=== PATIENT | female | born 1965 | race Two or more races ===

== ENCOUNTER → 2024-07-11 | Outpatient (CLI) | payer OTHER, SELFPAY ==
--- NOTE | 2024-07-11 11:03 | XR_ITS ---
Examination: Foot, left, 3 views Technique: AP, oblique, lateral views foot, 3 views Date and time of exam: July 11, 2024 1129 hrs. Indications: Foot pain beginning 10 days ago Findings: No acute fracture No dislocation No erosive or other significant arthritic change Impression: No fracture or dislocation No erosive or other significant arthritic change
== END | disposition home or self-care (01) ==
PROVIDERS: PCP Family Medicine; Referring Provider Physician Assistant; Visit Provider Physician Assistant
DX: M25.572 Pain in left ankle and joints of left foot (principal)
CPT/HCPCS: 73630

== ENCOUNTER → 2024-09-12 | Outpatient (CLI) | payer OTHER, SELFPAY ==
--- NOTE | 2024-09-12 12:12 | XR_ITS ---
Examination: Bilateral knees, standing AP single view Technique: Standing AP bilateral knees, standing AP single view Exam date and time: September 12, 2024 1224 hrs. Indications: Patient fell 2 months ago with injury to the right knee, right knee pain Findings: Mild to moderate narrowing medial joint space right knee Mild narrowing medial joint space left knee No fracture or dislocation Impression: Mild to moderate narrowing medial joint space right knee
--- NOTE | 2024-09-12 12:12 | XR_ITS ---
EXAMINATION: Ankle, left 3 views . Technique: Ankle AP, oblique, lateral 3 views Date and time of exam: September 12, 2024 1224 hrs. Indications: Left ankle pain beginning 4 weeks ago Findings: Moderate osteopenia 3 mm plantar bony calcaneal spur No acute fracture Impression: 3 mm plantar bony calcaneal spur
== END | disposition home or self-care (01) ==
PROVIDERS: PCP Physician Assistant; Referring Provider Physician Assistant; Visit Provider Physician Assistant
DX: M25.861 Other specified joint disorders, right knee (principal); S89.92XA Unspecified injury of left lower leg, initial encounter; W19.XXXA Unspecified fall, initial encounter; M77.32 Calcaneal spur, left foot
CPT/HCPCS: 73565; 73610

== ENCOUNTER → 2025-03-01 | Outpatient (CLI) | payer OTHER, SELFPAY ==
--- NOTE | 2025-03-01 13:55 | XR_ITS ---
Exam: MRI knee without contrast, right Date and time of exam: March 01, 2025 1419 hours INDICATIONS: Right knee pain 8 months Technique: Multiple axial, coronal, and sagittal sections on the knee have been obtained. T2-Weighted sagittal, fat-suppressed images, TR 3,500, TE 62, T2 weighted coronal fat-saturated images, TR 3,500, TE 62 Proton density sagittal sections, TR 1800, TE 31. T-1 weighted coronal images, TR 524, TE 13.0 Findings: Medial meniscus anterior horn intact. Medial meniscus, body partially replaced by isointense in signal. Posterior horn medial meniscus horizontal linear tear communicating inner margin. Lateral meniscus anterior horn is intact Lateral meniscus, body is intact Posterior horn lateral meniscus is intact Anterior cruciate ligament mild sprain Posterior cruciate ligament appears intact. Knee effusion is small. Quadriceps and patellar tendons appear intact. There is no evidence of tendinosis. Inflammatory change or fracture of Hoffa's fat pad is not seen. Medial patellar facet demonstrates severe thinning. Lateral patellar facet cartilage demonstrates severe thinning. Trochlear cartilage demonstrates severe thinning. Marrow signal adequate. Medial collateral ligament appears intact. Meniscocapsular separation body the medial meniscus Illiotibial band and fibular collateral ligament are intact. Biceps femoris tendons appear intact. Medial femoral condylar articular cartilage demonstrates severe thinning. Lateral femoral condylar articular cartilage demonstratesmoderate thinning. Tibial plateau cartilage demonstrates severe medial thinning. Impression: Tears of the body and posterior horn medial meniscus Meniscocapsular separation body the medial meniscus Mild sprain anterior cruciate ligament
== END | disposition home or self-care (01) ==
LOC: SMRI 13:24
PROVIDERS: PCP Family Medicine; Referring Provider Physician Assistant; Visit Provider Physician Assistant
DX: S83.241A Other tear of medial meniscus, current injury, right knee, initial encounter (principal); S83.194A Other dislocation of right knee, initial encounter; S83.511A Sprain of anterior cruciate ligament of right knee, initial encounter; X58.XXXA Exposure to other specified factors, initial encounter
CPT/HCPCS: 73721

== ENCOUNTER → 2025-04-24 | Outpatient (CLI) | payer OTHER, SELFPAY ==
[2025-04-24 09:31] LABS: Basophils # (Auto) 0.1 Thou/mm3 (0.0-0.2); Basophils % (Auto) 1 % (0-2.5); Eosinophils # (Auto) 0.2 Thou/mm3 (0.0-0.5); Eosinophils % (Auto) 3 % (0-10); Hematocrit 39.2 % (36.0-46.0); Hemoglobin 12.8 g/dL (12.0-16.0); Immature Granulocytes Auto 0.02 Thou/mm3 (0.00-0.00); Lymphocytes # (Auto) 2.5 Thou/mm3 (1.0-4.8); Lymphocytes % (Auto) 38 % (10-50); Mean Corpuscular HGB Conc 32.7 g/dl (31.0-37.0); Mean Corpuscular Hemoglobin 27.8 pg (25.0-35.0); Mean Corpuscular Volume 85 fL (80-100); Monocytes # (Auto) 0.4 Thou/mm3 (0.0-0.8); Monocytes % (Auto) 5 % (0-12); Neutrophils # (Auto) 3.5 Thou/mm3 (1.8-7.7); Neutrophils % (Auto) 52 % (37-80); Nucleated Red Blood Cell # 0.00 Thou/mm3 (0.00-0.00); Nucleated Red Blood Cell % 0 /100 WBC (0); Platelet Count 324 Thou/mm3 (140-440); RDW Standard Deviation 41.7 fL (36.4-46.3); Red Blood Count 4.60 Miln/mm3 (4.00-5.20); White Blood Count 6.7 Thou/mm3 (3.6-11.0)
[2025-04-24 09:57] LABS: Alanine Aminotransferase 22 U/L (10-49); Albumin, Serum 4.5 gm/dL (3.5-5.0); Albumin/Globulin Ratio 1.5 (1.2-2.2); Alkaline Phosphatase 69 U/L (46-116); Amylase 50 U/L (30-118); Anion Gap 8 (7-16); Aspartate Amino Transferase 24 U/L (0-34); BUN/Creatinine Ratio 11 Ratio (12-20); Bilirubin,Total 0.4 mg/dL (0.3-1.2); Blood Urea Nitrogen 9 mg/dL (9-23); Calcium 9.4 mg/dL (8.3-10.6); Calcium (Corrected) 9.4 mg/dL (8.5-10.1); Carbon Dioxide 26.1 mMol/L (20.0-31.0); Cardiac Risk Estimate 3.6 RATIO (3.7-5.6); Chloride 107 mMol/L (98-107); Cholesterol 257 mg/dL (132-200); Creatinine (Component) 0.8 mg/dL (0.6-1.3); Globulin 3.1 gm/dL (2.3-3.5); Glucose 104 mg/dL (74-106); HDL Cholesterol 71 mg/dL (40-60); LDL Cholesterol,Calculated 144 mg/dL (0-130); Lipase 45 U/L (12-53); Osmolality,Calculated 279 (275-295); Potassium 3.8 mMol/L (3.4-5.1); Sodium 141 mMol/L (136-145); Total Protein 7.6 gm/dL (5.7-8.2); Triglycerides 210 mg/dL (30-150); eGFR > 60 See Note
[2025-04-24 09:59] LABS: Vitamin D 25 Hydroxy Total 21.6 ng/mL (7.3-40.2)
[2025-04-24 10:01] LABS: Ferritin 36 ng/mL (7.3-270.7); Iron 72 mcg/dL (50-170)
[2025-04-24 10:02] LABS: Glucose Estimated Average 128 mg/dL (80-131); Hemoglobin A1C 6.1 % Hgb (4.8-6.0)
[2025-05-01 06:48] LABS: (tTG) Ab, IgA <1.0 U/mL; (tTG) Ab, IgG <1.0 U/mL; Endomysial Ab IgA NEGATIVE (NEGATIVE); Gliadin(Deamidated)Ab,IgA <1.0 U/mL; Gliadin(Deamidated)Ab,IgG <1.0 U/mL
== END | disposition home or self-care (01) ==
LOC: CDIM 08:46 → COPL 08:46
PROVIDERS: PCP Family Medicine; Referring Provider Physician Assistant; Visit Provider Physician Assistant
DX: R10.9 Unspecified abdominal pain (principal); E78.5 Hyperlipidemia, unspecified; E55.9 Vitamin D deficiency, unspecified
CPT/HCPCS: 36415; 80053; 80061; 82150; 82306; 82728; 83013; 83014; 83036; 83540; 83690; 85025; 86231; 86258; 86364

== ENCOUNTER 2025-06-18 03:07 | Inpatient (IN) | payer OTHER, MEDICAID, SELFPAY ==
[2025-06-18] VITALS (8 sets, daily range): BP systolic 107–164; BP diastolic 62–84; PULSE 58–95; RESP 14–19; TEMP 36.1–36.9; O2SAT 96–99; BMI 27.0
--- NOTE | 2025-06-18 03:32 | XR_ITS ---
Examination: CT abdomen and pelvis without contrast. Coronal 3-D reconstructions. Sagittal 2-D reconstructions. Date and time of exam: June 18, 2025, 0445 hours INDICATIONS: Abdominal pain beginning 3 days ago CTDI: vol (mGy): 7.17 DLP: (mGycm): 386 Technique: Axial images of the abdomen have been obtained, 3 mm slice thickness Intravenous contrast material has not been administered. Low dose protocols were performed. One or more of the following dose reduction techniques were used; automated exposure control, adjustment of the mA and/or KV according to patient size, use of iterative reconstruction technique. Findings: No focal liver or splenic lesions Gallstones No pancreatic or adrenal mass No renal or ureteral calculi Aorta normal size Normal appendix No bowel obstruction No pelvic mass Urinary bladder intact Osseous structures intact IMPRESSION: Cholelithiasis, recommend gallbladder sonography follow-up to exclude gallbladder wall thickening
--- NOTE | 2025-06-18 03:33 | PD.EDRME ---
Rapid Medical Screening Exam RME Arrival date/time: 06/18/25 03:07 This is a case of 60-year-old female with no medical history came into the emergency room due to abdominal pain nausea vomiting for 3 days worsening of the symptoms this patient decided to start consulted in the emergency ROOM Chief Complaint: Abdominal Pain Time Seen by Provider: 06/18/25 03:29 Vital signs: Vital Signs Temperature 97.5 F 06/18/25 03:17 Pulse Rate 74 06/18/25 03:17 Respiratory Rate 17 06/18/25 03:17 Blood Pressure 164/84 H 06/18/25 03:17 Pulse Oximetry (%) 98 06/18/25 03:17 Oxygen Delivery Method Room Air 06/18/25 03:17 Exam: Moderate tenderness in the epigastric area no guarding no rebound no rigidity Clinical Impression: Abdominal pain
--- NOTE | 2025-06-18 03:58 | EKG_ITS ---
[facility] Test Date: 2025-06-18 Pat Name: REX JIMENEZ Department: Room: - Gender: Female Adolescent Counselor: : 1965 Requested By: Taylor Duran Order Number: [id number] Reading MD: Taylor Duran Measurements Intervals [place] Rate: 69 P: 180 AL: 148 QRS: 146 QRSD: 81 T: 150 QT: 371 QTc: 399 Interpretive Statements ECTOPIC ATRIAL RHYTHM POSSIBLE RIGHT VENTRICULAR HYPERTROPHY [SOME/ALL OF: PROMINENT R IN V1, LATE TRANSITION, RAD, JOANNA, SSS] No previous ECG available for comparison /store/S0/[id number].pdf
[2025-06-18 04:01] LABS: Basophils # (Auto) 0.1 Thou/mm3 (0.0-0.2); Basophils % (Auto) 1 % (0-2.5); Eosinophils # (Auto) 0.1 Thou/mm3 (0.0-0.5); Eosinophils % (Auto) 1 % (0-10); Hematocrit 36.4 % (36.0-46.0); Hemoglobin 12.0 g/dL (12.0-16.0); Immature Granulocytes Auto 0.03 Thou/mm3 (0.00-0.00); Lymphocytes # (Auto) 1.8 Thou/mm3 (1.0-4.8); Lymphocytes % (Auto) 19 % (10-50); Mean Corpuscular HGB Conc 33.0 g/dl (31.0-37.0); Mean Corpuscular Hemoglobin 28.0 pg (25.0-35.0); Mean Corpuscular Volume 85 fL (80-100); Monocytes # (Auto) 0.5 Thou/mm3 (0.0-0.8); Monocytes % (Auto) 5 % (0-12); Neutrophils # (Auto) 7.2 Thou/mm3 (1.8-7.7); Neutrophils % (Auto) 75 % (37-80); Nucleated Red Blood Cell # 0.00 Thou/mm3 (0.00-0.00); Nucleated Red Blood Cell % 0 /100 WBC (0); Platelet Count 338 Thou/mm3 (140-440); RDW Standard Deviation 40.7 fL (36.4-46.3); Red Blood Count 4.28 Miln/mm3 (4.00-5.20); White Blood Count 9.7 Thou/mm3 (3.6-11.0)
--- NOTE | 2025-06-18 04:03 | PD.EDABDPN ---
ED Abdominal Pain RME/HPI General Chief Complaint: Abdominal Pain Stated complaint: UPPER ABD PAIN Time seen by provider: 06/18/25 03:29 Arrival date/time: 06/18/25 03:07 Limitations: no limitations RME / HPI RME / HPI narrative: 06/18/25 03:07 This is a case of 60-year-old female with no medical history came into the emergency room due to abdominal pain nausea vomiting for 3 days worsening of the symptoms this patient decided to start consulted in the emergency ROOM Dr. Galindo's Main ED Evaluation: 60yo female with no significant past medical history presents to the ED for a chief complaint of epigastric pain x 1999. Patient texted her daughter at 2100 stating she was having gas and bloating that was not improving despite using a heating pad, taking Gas X and herbal remedies. Patient also took omeprazole, but her abdominal pain continued, so she came in for evaluation. Patient reports associated nausea. Denies any vomiting, fever, chills, or any other associated symptoms. NKA. notes her is scheduled to have his gallbladder removed by Dr. Vaughn tomorrow and is concerned about needing to be admitted. Related Data Home Medications ?Medication ?Instructions ?Recorded ?Confirmed omeprazole 20 mg capsule,delayed 20 mg PO DAILY 06/18/25 06/18/25 release Allergies Allergy/AdvReac Type Severity Reaction Status Date / Time No Known Allergies Allergy Verified 06/18/25 03:12 Review of Systems Review of Systems Systems Reviewed: All systems reviewed, normal except as documented ED Exam General Limitations: Present no limitations General appearance: Present alert and in no apparent distress Head Head exam: Present atraumatic Eye Eye exam: Present normal appearance, PERRL and EOMI ENT ENT exam: Present normal exam, normal oropharynx and mucous membranes moist Neck Neck exam: Present normal inspection, full ROM and trachea midline Chest Chest inspection: Present normal inspection and symmetric chest wall rise Respiratory Respiratory exam: Present normal lung sounds bilaterally Cardiovascular Cardiovascular exam: Present regular rate, normal rhythm and normal heart sounds Abdominal Exam Abdominal exam: Present soft; Absent Gonzalez's sign Abdominal tenderness: Present epigastrium (mild) Extremities Exam Extremities exam: Present normal inspection and full ROM Back Exam Back exam: Present normal inspection and full ROM Neurological Exam Neurological exam: Present alert, oriented X3 and CN II-XII intact Psychiatric Psychiatric exam: Present normal affect and normal mood Skin Skin exam: Present warm, dry, intact and normal color Course Quality Measures none Orders Category Date Time Status Admit to Inpatient Status Routine Admission 06/18/25 09:35 Active Patient Condition Routine Admission 06/18/25 09:35 Ordered EKG (ED ONLY) *Do not use* NOW Care 06/18/25 03:58 Completed NPO NOW Care 06/18/25 09:36 Active Notify provider NEEDED Care 06/18/25 09:35 Active Strict Intake and Output Routine Care 06/18/25 09:36 Ordered Consult to General Surgery Stat Cons 06/18/25 09:23 Ordered Diet NPO (NOW) Diet 06/18/25 09:[address] abdomen pelvis wo con Stat Exams 06/18/25 03:32 Completed EKG (ED Only) Stat Exams 06/18/25 03:58 Draft US gall bladder Stat Exams 06/18/25 05:33 Completed CBC AM DRAW Lab 06/19/25 05:00 Ordered CBC AM DRAW Lab 06/20/25 05:00 Ordered CBC AM DRAW Lab 06/21/25 05:00 Ordered CBC Stat Lab 06/18/25 03:48 Completed Comprehensive Metabolic Panel AM DRAW Lab 06/19/25 05:00 Ordered Comprehensive Metabolic Panel AM DRAW Lab 06/20/25 05:00 Ordered Comprehensive Metabolic Panel AM DRAW Lab 06/21/25 05:00 Ordered Comprehensive Metabolic Panel Stat Lab 06/18/25 03:48 Completed INR [Prothrombin Time with INR] Stat Lab 06/18/25 02:48 Completed Lipase Stat Lab 06/18/25 03:48 Completed Magnesium AM DRAW Lab 06/19/25 05:00 Ordered PTT [Partial Thromboplastin Time] Stat Lab 06/18/25 02:48 Completed Phosphorous AM DRAW Lab 06/19/25 05:00 Ordered Thyroid Stimulating Hormone AM DRAW Lab 06/19/25 05:00 Ordered Troponin I Stat Lab 06/18/25 03:48 Completed Urinalysis Stat Lab 06/18/25 05:18 Completed Acetaminophen Tab [Tylenol Tab] Med 06/18/25 09:35 Active 650 mg PO Q6H PRN HYDROcodone*/APAP 5/325 [[place] 5/325] Med 06/18/25 09:35 Active 1 tab PO Q6HR PRN HYDROcodone*/APAP 5/325 [[place] 5/325] Med 06/18/25 03:34 Discontinued 1 tab PO X1 ONE Heparin Inj Med 06/18/25 21:00 Active 5,000 unit SC BID Morphine* Inj Med 06/18/25 09:35 Active 1 mg IVP Q4H PRN Morphine* Inj Med 06/18/25 05:35 Discontinued 4 mg IVP X1 ONE Ondansetron Inj [Zofran Inj] Med 06/18/25 09:35 Active 4 mg IVP Q6H PRN Ondansetron Inj [Zofran Inj] Med 06/18/25 05:51 Discontinued 4 mg IVP X1 ONE Ondansetron Odt [Zofran Odt] Med 06/18/25 03:34 Discontinued 4 mg PO X1 ONE Pantoprazole [Protonix] Med 06/18/25 21:00 Discontinued 40 mg PO BID Ringers Lactated 1000 ml [Lactated Ringers] 1,000 ml Med 06/18/25 09:45 Active IV 120 mls/hr Code Status Routine Oth 06/18/25 09:29 Ordered Vital Signs Vital signs: Vital Signs Temperature 97.5 F 06/18/25 03:17 Pulse Rate 74 06/18/25 03:17 Respiratory Rate 17 06/18/25 03:17 Blood Pressure 164/84 H 06/18/25 03:17 Pulse Oximetry (%) 98 06/18/25 03:17 Oxygen Delivery Method Room Air 06/18/25 03:17 Abdominal Pain MDM MDM Narrative MDM Narrative:: Scribe Attestation: 06/18/25 Herlinda Rodgers am scribing for and in the presence of Dr. Galindo. 60-year-old female presents to the emergency department with diffuse abdominal pain x 1 to 2 days that is nonspecific feels like it is gas Patient otherwise is not febrile. White count is 9.7. On physical exam patient has some nonspecific abdominal pain. Otherwise her AST is 392, ALT is 174, alk phos is 133. Lipase is 630. A CT scan was ordered by the nurse practitioner and/or midlevel upfront with CT without contrast that showed possible gallstone and pancreatitis and [place] cholecystic fluid. On reexamination the patient does not have a Gonzalez sign. Patient is pending ultrasound. Morphine and Zofran and IV fluids are given. Signed out to Dr. Cope at 0 600 pending final disposition and ultrasound findings. Patient data External records reviewed:: [facility] previous records (Per chart review, patient has no previous ED visits or admissions to this facility.) Clinical information provided by:: patient Social determinants that could affect healthcare access:: none Patient has the following chronic illnesses:: none How is presenting disease/condition affected by chronic disease/condition?: no chronic disease Evaluation data The following diagnostics were reviewed and interpreted by me:: lab results, radiology exam(s) and EKG tracing(s) Lab and/or radiology exams considered but not ordered:: none Interpretation Summary: CBC normal, PT/INR/PTT normal, Glucose 181, AST 392, ALT 174, Alk Phos 133, Lipase 630. EKG done at 0405, sinus rhythm, rate of 69, normal intervals, normal axis, no ST elevations or depressions, QTc: 390, [place] interval: 148, according to my interpretation. Telerad Preliminary Report Draft Patient: REX JIMENEZ Record#: [id number] Birthdate: 1965 Age/Sex: 60 / F Location: [facility] Attending Dr: Ordering Physician: Date of Service: Procedure(s): Accession Number(s): cc: ~ CT scan of the abdomen and pelvis without intravenous contrast (axial sections with sagittal and coronal reformats) June 18, 2025 0444 hours Clinical History: ABD PAIN Comparison: No prior study is available for comparison. Findings: The lung bases are clear. There are multiple calcified and non calcified calculi in the gallbladder, with borderline wall thickening and pericholecystic fat stranding. The liver, pancreas, spleen, kidneys and adrenals are unremarkable on this noncontrast study. No evidence of bowel obstruction. A moderate amount of fecal material is present in the colon. A small fat-containing umbilical hernia is present. The appendix is within normal limits (coronal images 51-65). There is no mesenteric or retroperitoneal adenopathy. The urinary bladder is unremarkable. The uterus and adnexa are unremarkable. There is no free fluid or free air. Degenerative changes are identified in the spine. Impression: Findings are of concern for acute cholecystitis. Recommend further evaluation with sonography, if clinically indicated Report Electronically Signed By: Ruslan Mcgee 06/18/2025 5:20:20 AM Medications / Prescriptions Medications or Prescriptions considered but not ordered:: none Medication administrations:: Medication Administration History Acetaminophen (Acetaminophen 325 Mg Tablet) 650 mg PO Q6H PRN PRN Reason: PAIN (1-3) OR FEVER > 100.4 Stop: 07/18/25 09:34 Hydrocodone Bitart/Acetaminophen (Hydrocodone/Apap 5/325 Tablet) 1 tab PO Q6HR PRN PRN Reason: PAIN SCALE 4-6 (Moderate Stop: 06/23/25 09:34 Heparin Sodium (Porcine) (Heparin Sod Inj 5000 Unit/Ml Vial) 5,000 unit SC BID [facility] Stop: 07/02/25 20:59 Last Admin: 06/18/25 20:27 Dose: 5,000 unit Documented By: KLESIE Co-signed By: EARL Lactated Ringer's (Lactated Ringers) 1,000 mls @ 120 mls/hr IV .Q8H20M [facility] Stop: 07/18/25 09:44 Last Admin: 06/18/25 18:22 Dose: 120 mls/hr Documented By: Infusion: 06/18/25 18:15 Dose: Infused Documented By: Admin: 06/18/25 09:55 Dose: 120 mls/hr Documented By: UGO Morphine Sulfate (Morphine Sulf Inj 4 Mg/Ml Vial) 1 mg IVP Q4H PRN PRN Reason: PAIN SCALE 7-10 (Severe Stop: 06/23/25 09:34 Ondansetron HCl (Ondansetron Inj 2 Mg/Ml Inj 2 Ml) 4 mg IVP Q6H PRN; Protocol PRN Reason: NAUSEA OR VOMITING Stop: 07/18/25 09:34 Pantoprazole Sodium (Pantoprazole Inj 40 Mg Vial) 40 mg IVP BID [facility] Stop: 07/18/25 20:59 Last Admin: 06/18/25 20:27 Dose: 40 mg Documented By: KELSIE Discontinued Medications Hydrocodone Bitart/Acetaminophen (Hydrocodone/Apap 5/325 Tablet) 1 tab PO X1 ONE Stop: 06/18/25 03:35 Last Admin: 06/18/25 04:16 Dose: 1 tab Documented By: CHRIS Morphine Sulfate (Morphine Sulf Inj 4 Mg/Ml Vial) 4 mg IVP X1 ONE Stop: 06/18/25 05:36 Last Admin: 06/18/25 06:02 Dose: 4 mg Documented By: JOSE Ondansetron HCl (Ondansetron Odt 4 Mg Tabrap) 4 mg PO X1 ONE; Protocol Stop: 06/18/25 03:35 Last Admin: 06/18/25 04:15 Dose: 4 mg Documented By: CHRIS Ondansetron HCl (Ondansetron Inj 2 Mg/Ml Inj 2 Ml) 4 mg IVP X1 ONE; Protocol Stop: 06/18/25 05:52 Last Admin: 06/18/25 06:01 Dose: 4 mg Documented By: JOSE Pantoprazole Sodium (Pantoprazole 40 Mg Tablet) 40 mg PO BID BILLY Stop: 07/18/25 20:59 see above Consultations Consultation(s) initiated? (list below): No Diagnosis Differential diagnosis abdominal pain: diverticulitis, gastroenteritis and other (GERD, NSTEMI) Most likely diagnosis given after review of the tests above:: final dx pending at signout Admission Indicated Admission indicated?: not indicated Admission Request Was there a request for admission?: No Disposition Plan Disposition Plan: other (specify) (Signed out to the next oncoming provider at 0600 pending gallbladder US.) Discharge Plan Plan Patient Disposition: Admit Acute Care w/in Hospital Problem List Clinical Impression: Acute gallstone pancreatitis
[2025-06-18 04:15] LABS: INR 1.0 (0.9-1.3); Partial Thromboplastin Time 25.2 Seconds (22.0-36.0); Prothrombin Time 10.2 Seconds (9.0-12.2)
[2025-06-18] MEDS: ONDANSETRON ODT 4 MG TABRAP PO (04:15)
[2025-06-18] MEDS: HYDROcodone/APAP 5/325 TABLET 1 TAB PO (04:16)
[2025-06-18 04:21] LABS: Alanine Aminotransferase 174 U/L (10-49); Albumin, Serum 4.8 gm/dL (3.5-5.0); Albumin/Globulin Ratio 1.5 (1.2-2.2); Alkaline Phosphatase 133 U/L (46-116); Anion Gap 11 (7-16); Aspartate Amino Transferase 392 U/L (0-34); BUN/Creatinine Ratio 16 Ratio (12-20); Bilirubin,Total 1.0 mg/dL (0.3-1.2); Blood Urea Nitrogen 11 mg/dL (9-23); Calcium 9.6 mg/dL (8.3-10.6); Calcium (Corrected) 9.6 mg/dL (8.5-10.1); Carbon Dioxide 25.2 mMol/L (20.0-31.0); Chloride 104 mMol/L (98-107); Creatinine (Component) 0.7 mg/dL (0.6-1.3); Estimated Creatinine Clearance 74.6 mL/min (>60); Globulin 3.1 gm/dL (2.3-3.5); Glucose 181 mg/dL (74-106); Lipase 630 U/L (12-53); Osmolality,Calculated 283 (275-295); Potassium 4.0 mMol/L (3.4-5.1); Sodium 140 mMol/L (136-145); Total Protein 7.9 gm/dL (5.7-8.2); Troponin I < 0.002 ng/mL (0.0-0.045); eGFR > 60 See Note
[2025-06-18 05:21] LABS: Collection Type, Urine Clean Catch
--- NOTE | 2025-06-18 05:22 | PRELIM_ITS ---
CT scan of the abdomen and pelvis without intravenous contrast (axial sections with sagittal and coronal reformats) June 18, 2025 0444 hours Clinical History: ABD PAIN Comparison: No prior study is available for comparison. Findings: The lung bases are clear. There are multiple calcified and non calcified calculi in the gallbladder, with borderline wall thickening and pericholecystic fat stranding. The liver, pancreas, spleen, kidneys and adrenals are unremarkable on this noncontrast study. No evidence of bowel obstruction. A moderate amount of fecal material is present in the colon. A small fat-containing umbilical hernia is present. The appendix is within normal limits (coronal images 51-65). There is no mesenteric or retroperitoneal adenopathy. The urinary bladder is unremarkable. The uterus and adnexa are unremarkable. There is no free fluid or free air. Degenerative changes are identified in the spine. Impression: Findings are of concern for acute cholecystitis. Recommend further evaluation with sonography, if clinically indicated Report Electronically Signed By: Ruslan Mcgee 06/18/2025 5:20:20 AM [EST]
[2025-06-18 05:27] LABS: Amorphous Crystals,Urine Present (Absent); Bacteria,Urine Rare; Bilirubin,Urine Negative (Negative); Blood,Urine Negative (Negative); Clarity,Urine Clear (Clear/Hazy); Color,Urine Yellow (Lt Yel-Yel); Glucose, Urine Negative (Negative); Ketones,Urine Negative (Negative); Leukocyte Esterase,Urine Positive (Negative); Nitrite,Urine Negative (Negative); PH,Urine 6.5 (5.0-7.0); Protein,Urine Negative (Neg - Trace); RBC,Urine 7 /hpf (0-3); Specific Gravity,Urine 1.022 (1.001-1.035); Squamous Epithelial Cell,Urine < 1 /hpf (0-5); Urobilinogen,Urine 2.0 mg/dL (0.0-1.0); WBC,Urine 5 /hpf (0-5)
--- NOTE | 2025-06-18 05:33 | XR_ITS ---
Examination: Abdomen sonogram, Limited Date and time of exam: June 18, 2025, 0551 hours INDICATIONS: Upper abdominal pain after 9:00 p.m. yesterday Technique: Real-time guerrero scale transabdominal sonographic images of the upper abdomen obtained. Findings: Multiple gallstones Gallbladder wall 0.31 cm no edema Common bile duct 0.4 cm Pancreatic head 2.6 cm Liver 12.7 cm smooth contour Normal hepatopetal portal venous flow Patent IVC IMPRESSION: Cholelithiasis, negative for cholecystitis
[2025-06-18] MEDS: ONDANSETRON INJ 2 MG/ML INJ 2 ML 4 MG IVP (06:01)
[2025-06-18] MEDS: MORPHINE SULF INJ 4 MG/ML VIAL IVP (06:02)
--- NOTE | 2025-06-18 06:43 | EDNOTE_ITS ---
Emergency Room Addendum Addendum Narrative: 0600: Care assumed from Dr. Perez, the previous shift emergency physician. Past medical, surgical, social and family history reviewed. Vitals and home medications reviewed. I will assume the care of the patient at this time, pending ultrasound and final disposition. Please refer to the emergency department record for history and examination from initial visit.?The following addendum documentation note is intended to reflect any pending information, findings, or radiology results not included in the patient?s initial chart. I reviewed labs and gallbladder ultrasound. Labs are remarkable for AST 392, ALT 174, alkaline phosphate 133, lipase 630, bilirubin is within normal limits at 1.0. The gallbladder ultrasound is remarkable for cholelithiasis no cholecystitis, and the common bile duct measures within normal limits at 0.4cm. 0844a: Patient has received [place] and Morphine through ED course. States at this time the pain has improved. States in the last week she has had episodes lasting 2-3 hours daily, described as a bloating sensation with pain localized to the epigastric region. Initially believed to be trapped gas and would improved after taking omeprazole and massaging her abdomen.However, states her pain began at 9PM last night and did not improved after several hours, prompting ED visit. We reviewed all the results, analysis, and treatment plans. Patient is amenable to admission. 0850a: I spoke with hospitalist team C for admission. Discussed patients PMHx, HPI, ED course, exam findings, labs, and radiology results. 0923a: I spoke with general surgeon Dr. Vaughn. Discussed patients PMHx, HPI, ED course, exam findings, labs, and radiology results. He agrees to consult.
[2025-06-18] MEDS: RINGERS LACTATED 1000 ML 1,000 ML 120 ML IV ×2 (09:55→18:22)
--- NOTE | 2025-06-18 11:29 | PD.SURCONS ---
HPI Consult details Consult date: 06/18/25 Reason for consultation narrative: Gallstone pancreatitis History of present illness: 60-year-old female without significant past medical history presented to the emergency department with worsening abdominal pain. Her symptoms started about a week ago with epigastric and right upper quadrant abdominal pain after eating. Over the past 2 days her pain has become persistent and progressively worse. Her pain is radiating to her back and associated with nausea. She denies vomiting, fever, chills, jaundice or discoloration of urine or stool. She denies having similar symptoms in the past. She was noted to have elevation of liver enzymes and lipase. CT scan and abdominal ultrasound revealed gallstones. Review of Systems Constitutional Constitutional: Denies chills and Denies fever(s) Cardiovascular Cardiovascular: Denies chest pain Respiratory Respiratory: Denies cough Gastrointestinal Gastrointestinal: Reports abdominal pain, Reports nausea and Denies vomiting Musculoskeletal Musculoskeletal: Reports back pain Hematologic/Lymphatic Hematologic/Lymphatic: Denies easy bleeding and Denies easy bruising Past Medical History Surgical History OTHER SURGICAL HX: No surgeries in the past Social History SMOKING STATUS: Never smoker SUBSTANCE USE: does not use ALCOHOL: Never Meds Home Medications and Allergies Home Medications ?Medication ?Instructions ?Recorded ?Confirmed ?Type omeprazole 20 mg capsule,delayed 20 mg PO DAILY 06/18/25 06/18/25 History release Allergies Allergy/AdvReac Type Severity Reaction Status Date / Time No Known Allergies Allergy Verified 06/18/25 03:12 Exam Vital Signs Temp Pulse Resp BP Pulse Ox O2 Del Method 97.9 F 58 L 14 107/62 96 Room Air 06/18/25 10:36 06/18/25 10:36 06/18/25 10:36 06/18/25 10:36 06/18/25 10:36 06/18/25 10:36 Constitutional Constitutional: no acute distress Routine HEENT Exam Eye: Present PERRL (Anicteric sclera) Routine Abdominal Exam Comments: Abdomen is soft and nondistended. She has epigastric and right upper quadrant tenderness to palpation with guarding, no rebound tenderness or peritonitis at this time Results Results: Laboratory Laboratory results: results reviewed Results: Imaging CT scan - abdomen: report reviewed and image reviewed CT scan - pelvis: report reviewed and image reviewed US - abdomen: report reviewed and image reviewed Assessment & Plan Problem List (1) Biliary acute pancreatitis without necrosis or infection: Status: Acute Plan Keep n.p.o. with IV fluids. Will plan for laparoscopic possible open cholecystectomy with cholangiogram when pancreatitis improves. Risks, benefits and alternatives to procedure discussed with the patient and her family. All their questions answered, they agreed and consented to proceed with the operation.
[2025-06-18 11:54] LABS: Cardiac Risk Estimate 3.2 RATIO (3.7-5.6); Cholesterol 240 mg/dL (132-200); HDL Cholesterol 74 mg/dL (40-60); LDL Cholesterol,Calculated 137 mg/dL (0-130); Triglycerides 147 mg/dL (30-150)
--- NOTE | 2025-06-18 13:08 | ESHP_ITS ---
<Statement entered by Kostas Ashby MD - 06/18/25 13:23> 60-year-old female with history of hyperlipidemia but no other past medical history who presents with 1 week of abdominal pain. Patient states that she has been experiencing abdominal pain that worsens with food but no associated nausea or vomiting, located in epigastrium and at times in the right upper quadrant. However, last night she experienced acute worsening of her abdominal pain that radiated to her back and prompted her to come to the ED. Upon arrival, blood pressure slightly elevated in 160s over 80s but otherwise was unremarkable and patient was afebrile. Labs showed no leukocytosis but elevated LFTs and alk phos as well as lipase of 630. Lipid panel showed triglycerides of 147. CT A/P showed cholelithiasis but no signs of gallbladder wall thickening and gallbladder ultrasound showed the same with normal common bile duct. Given typical abdominal pain and elevated lipase, meets criteria for pancreatitis and will be admitted for management of the same with aggressive IVF resuscitation and pain management. General surgery consulted given that likely etiology is out of gallstones as she does not smoke, drink, triglycerides within normal limits and no recent bug/insect bites. Plan for laparoscopic, possible open, cholecystectomy with cholangiogram when pancreatitis improves. ----- Note reviewed and agree with care plan as documented. Please refer to the note below for further details. Plan discussed with attending physician Dr. Jose Alejandro Ashby MD PGY-2 Internal Medicine Documentation for date of: 06/18/25 HPI History of Present Illness Chief complaint: Upper abdominal pain History of present illness: Patient is a 60-year-old female with no significant past medical history that presented to the ED on 06/18/2025 with chief complaint of abdominal pain. The patient presents with intermittent abdominal pain that has been ongoing for the past 1 week.However epigastric pain worsen last night around 9pm after dinner. The pain is described as a sharp, tight sensation located in the epigastric region and radiates to the bilateral lower back. The discomfort does not worsen after eating. The patient rates the pain as 9 out of 10 at its worst. She also reports associated constipation, with regular daily bowel movements consisting of small, hard, pellet-like stools. However, she denies nausea, vomiting, chills, or fever. The patient tried self-management measures, including massage and an [id number] gastric tablet, but these did not provide relief. She also took omeprazole, suspecting the pain might be related to acid reflux, but only experienced minimal relief with the PPI. The patient denies any history of steroid use, previous trauma, or use of other [id number] medications. ED Course: -Initial vitals were blood pressure 164/84, pulse 74, respiratory 17, temp 97.5, O2 sat 98% on room air -Labs significant for AST 392, ALT 174, alkaline phosphatase 133. Lipid panel significant for cholesterol 240, LDL 137, HDL cholesterol 74, lipase 630 - Imaging included abdominal/pelvis CT that showed cholelithiasis. Gallbladder ultrasound showed multiple gallstones with with common bile duct 0.5 cm. Negative for cholecystitis. EKG showed sinus rhythm -In the ED, patient was given Zofran 4 mg x 2, hydrocodone/APAP 1 tab, morphine IV 4 mg -Patient was admitted for acute gallstone pancreatitis evaluation and management. Review of Systems Review of systems otherwise negative except what is mentioned above. Past Medical History: Hyperlipidemia Family History: Mother-open heart surgery, stent placement, hypertension. Sister-cholecystectomy, diabetes Surgical History: None Social History: Denies history of smoking, denies current alcohol use, denies recreational drug use Current Medications: None Allergies: No known drug allergies Exam Vital Signs Temp Pulse Resp BP Pulse Ox O2 Del Method 97.9 F 58 L 14 107/62 96 Room Air 06/18/25 10:36 06/18/25 10:36 06/18/25 10:36 06/18/25 10:36 06/18/25 10:36 06/18/25 10:36 Narrative Exam General: Alert, no acute distress.Conversational and non-toxic appearing. Skin: Warm, dry, intact. No rash or ecchymoses. Head: Normocephalic, atraumatic. Eye: Normal conjunctiva, PERRL. Throat: Oral mucosa moist. No obvious lesions in oropharynx. Cardiovascular: Regular rate and rhythm, no murmur, +S1/S2. Respiratory: Lungs are clear to auscultation, respirations unlabored, no crackles, no wheezing. Gastrointestinal: Soft, nontender, non-distended. No guarding or rebound tenderness. Extremities: No edema, no cyanosis, no clubbing. Neuro: Alert and oriented x3.No focal deficits observed. Conversant, moving all extremities. No overt cerebellar signs/incoordination. Psychiatric: Cooperative, appropriate affect Results: Labs 06/18/25 03:48 06/18/25 03:48 Labs: Short CBC 06/18/25 Range/Units 03:48 WBC 9.7 (3.6-11.0) Thou/mm3 Hgb 12.0 (12.0-16.0) g/dL Hct 36.4 (36.0-46.0) % Plt Count 338 (140-440) Thou/mm3 BMP 06/18/25 03:48 Sodium 140 Potassium 4.0 Chloride 104 Carbon Dioxide 25.2 BUN 11 Creatinine 0.7 Glucose 181 H Calcium 9.6 Cardiac Enzymes 06/18/25 Range/Units 03:48 Troponin I < 0.002 (0.0-0.045) ng/mL Liver Function 06/18/25 Range/Units 03:48 Total Bilirubin 1.0 (0.3-1.2) mg/dL AST 392 H (0-34) U/L ALT 174 H (10-49) U/L Alkaline Phosphatase 133 H (46-116) U/L Albumin 4.8 (3.5-5.0) gm/dL Urine 06/18/25 Range/Units 05:18 Urine Color Yellow (Lt Yel-Yel) Urine Clarity Clear (Clear/Hazy) Urine pH 6.5 (5.0-7.0) Ur Specific [place] 1.022 (1.001-1.035) Urine Protein Negative (Neg - Trace) Urine Glucose (UA) Negative (Negative) Quality Measures Quality Measures VTE prophylaxis and none Medications Home Medications and Allergies Home Medications ?Medication ?Instructions ?Recorded ?Confirmed ?Type omeprazole 20 mg capsule,delayed 20 mg PO DAILY 06/18/25 History release Allergies Allergy/AdvReac Type Severity Reaction Status Date / Time No Known Allergies Allergy Verified 06/18/25 03:12 Visit Medications Acetaminophen (Acetaminophen 325 Mg Tablet) 650 mg PO Q6H PRN PRN Reason: PAIN (1-3) OR FEVER > 100.4 Stop: 07/18/25 09:34 Hydrocodone Bitart/Acetaminophen (Hydrocodone/Apap 5/325 Tablet) 1 tab PO Q6HR PRN PRN Reason: PAIN SCALE 4-6 (Moderate Stop: 06/23/25 09:34 Heparin Sodium (Porcine) (Heparin Sod Inj 5000 Unit/Ml Vial) 5,000 unit SC BID REPLACED BY [facility] Stop: 07/02/25 20:59 Lactated Ringer's (Lactated Ringers) 1,000 mls @ 120 mls/hr IV .Q8H20M BILLY Stop: 07/18/25 09:44 Last Admin: 06/18/25 09:55 Dose: 120 mls/hr Morphine Sulfate (Morphine Sulf Inj 4 Mg/Ml Vial) 1 mg IVP Q4H PRN PRN Reason: PAIN SCALE 7-10 (Severe Stop: 06/23/25 09:34 Ondansetron HCl (Ondansetron Inj 2 Mg/Ml Inj 2 Ml) 4 mg IVP Q6H PRN; Protocol PRN Reason: NAUSEA OR VOMITING Stop: 07/18/25 09:34 Pantoprazole Sodium (Pantoprazole 40 Mg Tablet) 40 mg PO BID BILLY Stop: 07/18/25 20:59 Discontinued Medications Hydrocodone Bitart/Acetaminophen (Hydrocodone/Apap 5/325 Tablet) 1 tab PO X1 ONE Stop: 06/18/25 03:35 Last Admin: 06/18/25 04:16 Dose: 1 tab Morphine Sulfate (Morphine Sulf Inj 4 Mg/Ml Vial) 4 mg IVP X1 ONE Stop: 06/18/25 05:36 Last Admin: 06/18/25 06:02 Dose: 4 mg Ondansetron HCl (Ondansetron Odt 4 Mg Tabrap) 4 mg PO X1 ONE; Protocol Stop: 06/18/25 03:35 Last Admin: 06/18/25 04:15 Dose: 4 mg Ondansetron HCl (Ondansetron Inj 2 Mg/Ml Inj 2 Ml) 4 mg IVP X1 ONE; Protocol Stop: 06/18/25 05:52 Last Admin: 06/18/25 06:01 Dose: 4 mg Assessment & Plan Plan Patient is a 60-year-old female with no significant past medical history that presented to the ED on 06/18/2025 with chief complaint of worsening epigastric abdominal pain associated with constipatio. Gallbladder ultrasound found to have multiple gallstones, abdominal CT pelvis shows cholelithiasis. Patient admitted for acute pancreatitis evaluation and management. Intractable epigastric pain Acute gallstones pancreatitis Symptomatic Cholelithiasis Reported progressively worsening epigastric abdominal pain that radiates to the back. No nausea, no vomiting, no fever. Pt meets pancreatitis criteria with significant epigastric abdominal pain and elevated pancreatic enzyme lipase 630. T. yasir normal 06/18/25: abdominal/pelvis CT that showed cholelithiasis. 06/18/25: Gallbladder ultrasound showed multiple gallstones with with common bile duct 0.5 cm. Negative for cholecystitis. Plan - Pain control with hydrocodone/APAP 1 tab p.o. and morphine 1 mg IVP q4h as needed - Started IV hydration with LR at 120 mls/hour - Zofran 4 mg every 6 as needed for nausea - Protonix 40 mg p.o. twice daily - Continue to monitor daily labs - Surgery Dr. Vaughn consulted- Keep n.p.o. with IV fluids. Will plan for laparoscopic possible open cholecystectomy with cholangiogram when pancreatitis improves Transaminitis Likely transient to gallstone pancreatitis Plan - Continue to monitor liver enzymes - Continue management per above Hyperlipidemia Patient does mention history of high cholesterol however takes no medication. Lipid panel significant for cholesterol 240, LDH cholesterol 137, HDL cholesterol 74. Plan - Will starts statin regimen upon discharge Hospital management: Lines: peripheral IV Diet: N.p.o. GI prophylaxis: Protonix 40 mg DVT prophylaxis: Heparin SubQ Disposition: MedSurg for acute gastroenteritis, pending surgery recc CODE STATUS: Full code Patient seen and assessed under supervision of attending physician Dr. Blount and discuss with senior resident Dr. Ryan Ashby PGY-2 Kristal Rincon MD PGY-1, Internal Medicine Please note: this document was transcribed using voice recognition technology; minor inaccuracies may be present. Attending Provider Attestation/Addendum I have seen and examined the patient. I was physically present for the gilbert portions of the services provided including history, physical exam, diagnosis, treatment plans and orders. I agree with assessment and plan of care as documented by residents. Patient is a 60 years old female with history of hyperlipidemia who presented to the ED with complaint of abdominal pain. Patient has been having abdominal pain for 1 week, usually would come and go but the one started yesterday evening persisted which prompted the visit to the ED. Denies any nausea vomiting, constipation or diarrhea. In the ED, blood pressure was 164/84, rest of the vitals were within normal limits. Lab results show elevated AST ALT, ALP and lipase of 630. Abdomen/pelvis CT was obtained, showed cholelithiasis without cholecystitis. Gallbladder ultrasound also showed similar finding. We will admit the patient for management of gallstone pancreatitis in setting of cholelithiasis. We will start her on IV hydration, antiemetic, analgesics. General surgery consulted, patient is planned for cholecystectomy with cholangiogram after her pancreatitis improves. We will keep her n.p.o. for now. Lipid panel obtained, triglycerides within normal limits. Even though this this note was carefully revised there may still be minor errors in induction coordination engineer due to voice recognition software. Clint Blount MD
[2025-06-18] MEDS: HEPARIN SOD INJ 5000 UNIT/ML VIAL SC (20:27)
[2025-06-19] VITALS (11 sets, daily range): BP systolic 132–166; BP diastolic 65–89; PULSE 68–85; RESP 14–19; TEMP 36.4–37.2; O2SAT 94–100
[2025-06-19] MEDS: RINGERS LACTATED 1000 ML 1,000 ML 120 ML IV ×3 (02:44→17:30)
[2025-06-19 06:24] LABS: Basophils # (Auto) 0.1 Thou/mm3 (0.0-0.2); Basophils % (Auto) 1 % (0-2.5); Eosinophils # (Auto) 0.2 Thou/mm3 (0.0-0.5); Eosinophils % (Auto) 3 % (0-10); Hematocrit 35.1 % (36.0-46.0); Hemoglobin 11.6 g/dL (12.0-16.0); Immature Granulocytes Auto 0.01 Thou/mm3 (0.00-0.00); Lymphocytes # (Auto) 2.8 Thou/mm3 (1.0-4.8); Lymphocytes % (Auto) 42 % (10-50); Mean Corpuscular HGB Conc 33.0 g/dl (31.0-37.0); Mean Corpuscular Hemoglobin 28.1 pg (25.0-35.0); Mean Corpuscular Volume 85 fL (80-100); Monocytes # (Auto) 0.4 Thou/mm3 (0.0-0.8); Monocytes % (Auto) 5 % (0-12); Neutrophils # (Auto) 3.2 Thou/mm3 (1.8-7.7); Neutrophils % (Auto) 49 % (37-80); Nucleated Red Blood Cell # 0.00 Thou/mm3 (0.00-0.00); Nucleated Red Blood Cell % 0 /100 WBC (0); Platelet Count 303 Thou/mm3 (140-440); RDW Standard Deviation 40.7 fL (36.4-46.3); Red Blood Count 4.13 Miln/mm3 (4.00-5.20); White Blood Count 6.6 Thou/mm3 (3.6-11.0)
[2025-06-19 07:49] LABS: Alanine Aminotransferase 172 U/L (10-49); Albumin, Serum 4.0 gm/dL (3.5-5.0); Alkaline Phosphatase 122 U/L (46-116); Anion Gap 11 (7-16); Aspartate Amino Transferase 113 U/L (0-34); BUN/Creatinine Ratio 11 Ratio (12-20); Bilirubin,Total 0.8 mg/dL (0.3-1.2); Blood Urea Nitrogen 9 mg/dL (9-23); Calcium 9.2 mg/dL (8.3-10.6); Calcium (Corrected) 9.2 mg/dL (8.5-10.1); Carbon Dioxide 27.3 mMol/L (20.0-31.0); Chloride 106 mMol/L (98-107); Creatinine (Component) 0.8 mg/dL (0.6-1.3); Estimated Creatinine Clearance 65.3 mL/min (>60); Glucose 114 mg/dL (74-106); Lipase 106 U/L (12-53); Magnesium 1.8 mg/dL (1.6-2.6); Osmolality,Calculated 286 (275-295); Phosphorous 4.2 mg/dL (2.4-5.1); Potassium 4.0 mMol/L (3.4-5.1); Sodium 144 mMol/L (136-145); Thyroid Stimulating Hormone 1.07 uIU/mL (0.55-4.78); eGFR > 60 See Note
--- NOTE | 2025-06-19 10:40 | PC.SS ---
Prachi Barriga is a 60-year-old female admitted to Med Surg for Pancreatitis. SS conducted bedside contact with the patient to complete initial assessment and to discuss discharge planning. Role and reason explained. Patient confirmed demographic information. Patient identifies dtr Woody Larios [phone] as her surrogate decision maker. Pt states she is able to complete all ADL?s independently. No need for any source of DME. Pts PCP is Dr. Forte. Pharmacy of choice [facility]. Discharge options discussed and the pt wishes to return home.? Family will provide transportation upon DC. No further intervention required at this time, social work nurse would be available to address any further concerns. DC Plan: Home Contact: Daniela Mckay Address: Confirmed on face sheet PCP: Reanna
--- NOTE | 2025-06-19 10:42 | ESPR_ITS ---
<Statement entered by Kostas Ashby MD - 06/19/25 16:58> No acute overnight events. Seen and examined at bedside patient resting comfortably in bed. States that pain has improved since presenting to the hospital and was able to sleep throughout the night. He has had no fevers, chills, sweats. CBC shows no leukocytosis and hemoglobin stable. CHEM panel showing improving LFTs and alk phos and T. bili has remained within normal limits. Lipase downtrended. Per operative report cholangiogram x-ray was obtained that showed a dilated CBD with questionable small distal CBD stone as there was a filling defect into the duodenum. Touch base with general surgery and will follow-up on morning LFTs make decision whether or not patient will require transfer. ----- Note reviewed and agree with care plan as documented. Please refer to the note below for further details. Plan discussed with attending physician Dr. Geovani Ashby MD PGY-2 Internal Medicine Documentation for date of: 06/19/25 Subjective Subjective Interval history: No acute events overnight, per daughter at bedside patient slept soundly throughout the night. Patient seen and examined at bedside. She have no active complaint. She is alert as she was only asking about when she can resume eating after the procedure done today. Per patient Dr. Vaughn told her about double laparoscopic cholecystectomy later today. Labs were reviewed. Notable for improved transaminitis with AST from 392 to 113, ALT 174 to172. Lipase improved from 630 to 106. Exam Vital Signs Temp Pulse Resp BP Pulse Ox O2 Del Method 97.6 F 75 16 154/79 H 96 Room Air 06/19/25 08:00 06/19/25 08:00 06/19/25 08:00 06/19/25 08:00 06/19/25 08:00 06/19/25 08:00 Narrative Exam General: Alert, no acute distress.Conversational and non-toxic appearing. Skin: Warm, dry, intact. No rash or ecchymoses. Head: Normocephalic, atraumatic. Eye: Normal conjunctiva, PERRL. Throat: Oral mucosa moist. No obvious lesions in oropharynx. Cardiovascular: Regular rate and rhythm, no murmur, +S1/S2. Respiratory: Lungs are clear to auscultation, respirations unlabored, no crackles, no wheezing. Gastrointestinal: Soft, nontender, non-distended. No guarding or rebound tenderness. Extremities: No edema, no cyanosis, no clubbing. Neuro: Alert and oriented x3.No focal deficits observed. Conversant, moving all extremities. No overt cerebellar signs/incoordination. Psychiatric: Cooperative, appropriate affect Objective Labs 06/20/25 05:32 06/20/25 05:32 Labs: Laboratory Results - last 24 hr 06/18/25 06/19/25 03:48 05:35 WBC 6.6 RBC 4.13 Hgb 11.6 L Hct 35.1 L MCV 85 MCH 28.1 MCHC 33.0 RDW Std Deviation 40.7 Plt Count 303 D Neut % (Auto) 49 Lymph % (Auto) 42 [place] % (Auto) 5 Eos % (Auto) 3 Baso % (Auto) 1 Neut # (Auto) 3.2 Lymph # (Auto) 2.8 [place] # (Auto) 0.4 Eos # (Auto) 0.2 Baso # (Auto) 0.1 Immature Gran # (Auto) 0.01 H Absolute Nucleated RBC 0.00 Immature Gran % 0 Nucleated RBC % 0 Sodium 144 Potassium 4.0 Chloride 106 Carbon Dioxide 27.3 Anion Gap 11 BUN 9 Creatinine 0.8 Estim Creat Clear Calc 65.3 eGFR > 60 BUN/Creatinine Ratio 11 L Glucose 114 H D Calculated Osmolality 286 Calcium 9.2 Corrected Calcium 9.2 Phosphorus 4.2 Magnesium 1.8 Total Bilirubin 0.8 AST 113 H ALT 172 H Alkaline Phosphatase 122 H Albumin 4.0 D Triglycerides 147 Cholesterol 240 H LDL Cholesterol, Calc 137 H HDL Cholesterol 74 H Cholesterol/HDL Ratio 3.2 L Lipase 106 H D TSH 1.07 Quality Measures Quality Measures VTE prophylaxis and none Assessment & Plan Assessment Current Active Medications: Generic Name Dose Route Start Last Admin Trade Name Freq PRN Reason Stop Dose Admin Acetaminophen 650 mg 06/18/25 09:35 Acetaminophen 325 Mg Tablet PO 07/18/25 09:34 Q6H PRN PAIN (1-3) OR FEVER > 100.4 Hydrocodone Bitart/Acetaminophen 1 tab 06/18/25 09:35 Hydrocodone/Apap 5/325 Tablet PO 06/23/25 09:34 Q6HR PRN PAIN SCALE 4-6 (Moderate Heparin Sodium (Porcine) 5,000 unit 06/18/25 21:00 06/19/25 09:35 Heparin Sod Inj 5000 Unit/Ml Vial SC 07/02/25 20:59 Not Given BID BILLY Lactated Ringer's 1,000 mls @ 120 mls/hr 06/18/25 09:45 06/19/25 02:44 Lactated Ringers IV 07/18/25 09:44 120 mls/hr .Q8H20M BILLY Administration Morphine Sulfate 1 mg 06/18/25 09:35 Morphine Sulf Inj 4 Mg/Ml Vial IVP 06/23/25 09:34 Q4H PRN PAIN SCALE 7-10 (Severe Ondansetron HCl 4 mg 06/18/25 09:35 Ondansetron Inj 2 Mg/Ml Inj 2 Ml IVP 07/18/25 09:34 Q6H PRN NAUSEA OR VOMITING Protocol Pantoprazole Sodium 40 mg 06/18/25 21:00 06/19/25 09:35 Pantoprazole Inj 40 Mg Vial IVP 07/18/25 20:59 40 mg BID BILLY Administration Plan Patient is a 60-year-old female with no significant past medical history that presented to the ED on 06/18/2025 with chief complaint of worsening epigastric abdominal pain associated with constipatio. Gallbladder ultrasound found to have multiple gallstones, abdominal CT pelvis shows cholelithiasis. Patient admitted for acute pancreatitis evaluation and management. Intractable epigastric pain Acute gallstones pancreatitis Symptomatic Cholelithiasis Reported progressively worsening epigastric abdominal pain that radiates to the back. No nausea, no vomiting, no fever. Pt meets pancreatitis criteria with significant epigastric abdominal pain and elevated pancreatic enzyme lipase 630->106 T. yasir normal 06/18/25: abdominal/pelvis CT that showed cholelithiasis. 06/18/25: Gallbladder ultrasound showed multiple gallstones with with common bile duct 0.5 cm. Negative for cholecystitis. Plan - Pain control with hydrocodone/APAP 1 tab p.o. and morphine 1 mg IVP q4h as needed - Started IV hydration with LR at 120 mls/hour - Zofran 4 mg every 6 as needed for nausea - Protonix 40 mg p.o. twice daily - Continue to monitor daily labs - Surgery Dr. Vaughn consulted- Keep n.p.o. with IV fluids. Will plan for laparoscopic possible open cholecystectomy with cholangiogram when pancreatitis today Transaminitis-improving Likely transient to gallstone pancreatitis AST 392 -> 113 ALT 174 ->172 Plan - Continue to monitor liver enzymes - Continue management per above Hyperlipidemia Patient does mention history of high cholesterol however takes no medication. Lipid panel significant for cholesterol 240, LDH cholesterol 137, HDL cholesterol 74. Plan - Will start statin regimen upon discharge Hospital management: Lines: peripheral IV Diet: N.p.o. GI prophylaxis: Protonix 40 mg DVT prophylaxis: Heparin SubQ Disposition: MedSurg for acute gastroenteritis, pending surgery recc CODE STATUS: Full code Patient seen and assessed under supervision of attending physician Dr. Olivo and discuss with senior resident Dr. Ryan Ashby PGY-2 Kristal Rincon MD PGY-1, Internal Medicine Please note: this document was transcribed using voice recognition technology; minor inaccuracies may be present. Attending Provider Attestation/Addendum Ida, Zuly Olivo, , attest that I was physically present for the gilbert portions of the service and evaluated the patient with the resident and I reviewed and discussed the case with the resident and agree with the resident's findings and plans of care as documented above Patient seen and evaluated this AM. She reports feeling well and denies any pain at this time. She is scheduled for lap janie this afternoon. She denies any nausea and vomiting, fevers or chills. No acute events overnight. Will f/u with operative report. Anticipate DC within next 24-48h.
[2025-06-19 13:07] LABS: Albumin/Globulin Ratio 1.3 (1.2-2.2); Globulin 3.0 gm/dL (2.3-3.5); Total Protein 7.0 gm/dL (5.7-8.2)
--- NOTE | 2025-06-19 14:00 | XR_ITS ---
EXAMINATION: Operative cholangiogram TECHNIQUE: AP portable supine abdomen single view Date and time: June 19, 2025, 1529 hours INDICATIONS: Status post laparoscopic cholecystectomy FINDINGS: Intra and extrahepatic biliary tract dilatation, common hepatic duct 21 mm, common bile duct 18 mm Meniscus defect, 3 mm in the distal common bile duct IMPRESSION: Findings most consistent with 3 mm impacted stone in the distal common bile duct
--- NOTE | 2025-06-19 16:05 | PD.SUROPNT ---
Date of Procedure 06/19/25 Pre Op Diagnosis Gallstone pancreatitis Post Op Diagnosis Cholelithiasis with cholecystitis Procedure Laparoscopic cholecystectomy with intraoperative cholangiogram Findings Distended gallbladder with multiple gallstones and chronic cholecystitis. Cholangiogram revealed dilated CBD with questionable small distal CBD stone Procedure Description Patient was brought into the operating room in supine position. After administration of general endotracheal anesthesia abdomen was prepped and draped in standard surgical manner. A Veress needle was inserted through the umbilicus and pneumoperitoneum was obtained up to 15 mmHg. The Veress needle was then removed, a 5 mm infraumbilical incision was made and the 5mm trocar was inserted. Laparoscopic camera was placed. Under direct visualization a laparoscopic camera a 10 mm trocar was placed in subxiphoid and two 5 mm trocars placed in right upper quadrant. The gallbladder was identified and was noted to be moderately distended with multiple gallstones and chronic cholecystitis. It was retracted cephalad and laterally. Dissection started near the infundibulum of gallbladder where cystic duct and gallbladder junction clearly identified. The cystic duct was circumferentially dissected off the peritoneum and surrounding inflammatory tissue. The critical view of safety was clearly demonstrated. An Endo Clip placed near the cystic duct and gallbladder junction and a small ductotomy was performed. Cholangiogram catheter was placed through the ductotomy site and contrast was injected. Cholangiogram x-ray was obtained that revealed dilated CBD with questionable small distal CBD stone, no filling of contrast into the duodenum. The cholangiogram catheter was removed and the cystic duct was divided between 2 endoclips proximally and one distally. The cystic artery was similarly divided. The gallbladder was then from the liver bed using electrocautery. The gallbladder was then placed inside an Endo Catch and removed from the abdomen utilizing subxiphoid trocar site. The area was copiously and thoroughly washed and irrigated, all the fluid was suctioned and the suction fluid returned clear. Hemostasis achieved using electrocautery. Endoclips noted be in place and intact without any bleeding or any leakage. Hemostasis was adequate and satisfactory. The subxiphoid trocar sites fascial defect was closed with 0 Vicryl using Endo Closure device. Instruments and trocars removed, pneumoperitoneum was evacuated and the incisions closed with 4-0 Monocryl in subcuticular fashion. Instrument needle and sponge counts were all reported to be correct X2. Patient tolerated the procedure well, was extubated, breathing spontaneously and without difficulty and was transferred to postanesthesia care in stable condition. Anesthesia GETA and local Pathology / specimen Other (Gallbladder and contents) Estimated Blood Loss 10 Condition Stable Disposition PACU Surgeon Mario Vaughn MD Surgical Staff Operation Date: 06/19/25 16:15 Case Staff Anesthesiologist: Gildardo Shaw RN First Assistant: Gayatri Peña
--- NOTE | 2025-06-19 16:28 | SUR.PHASEI ---
1612: Pt received in [facility] via [facility]. Report from Julianna ALEXANDER and Dr. Callahan. Pt obtunded. Resp even, unlabored. VS stable. Surgical sites x4 to abdomen secured with demabond. No swelling, discoloration to areas.
[2025-06-19] MEDS: HYDROmorphone INJ 2 MG/ML VIAL 0.4 MG IVP (16:36)
--- NOTE | 2025-06-19 16:39 | SUR.PHASEI ---
1636: Pt awake with c/o pain to abdomen. VS stable. Resp even, unlabored. Pain medication given per order.
--- NOTE | 2025-06-19 17:06 | SUR.PHASEI ---
1648: Pt resting. States she still has little pain but pain level coming down. Resp even, unlabored. VS stable. Surgical sites remain dry, clean, intact. Report to Betsy ALEXANDER 3rd floor. Pt transferred to [id number] in stable condition.
[2025-06-19] MEDS: CEFOXITIN 2 GM in SODIUM CHLORIDE 0.9% (Popper) 50 ML IV ×2 (17:31→23:13)
[2025-06-19] MEDS: MORPHINE SULF INJ 4 MG/ML VIAL 1 MG IVP (17:31)
[2025-06-19] MEDS: DOCUSATE SOD 100 MG CAPSULE PO (20:14)
[2025-06-19] MEDS: HYDROcodone/APAP 5/325 TABLET 1 TAB PO (20:14)
[2025-06-19] MEDS: HEPARIN SOD INJ 5000 UNIT/ML VIAL SC (20:15)
[2025-06-20] VITALS: BP 145/71; PULSE 73; RESP 17; TEMP 37.1; O2SAT 97
[2025-06-20] MEDS: HYDROcodone/APAP 5/325 TABLET 1 TAB PO ×2 (03:18→12:18)
[2025-06-20] MEDS: RINGERS LACTATED 1000 ML 1,000 ML 120 ML IV (03:18)
[2025-06-20 04:00] VITALS: BP 114/55; PULSE 67; RESP 16; TEMP 36.1; O2SAT 98
--- NOTE | 2025-06-20 04:03 | PC.NURSE ---
[facility] on 06/20/25 from 02:00am to 03:48am.
[2025-06-20] MEDS: CEFOXITIN 2 GM in SODIUM CHLORIDE 0.9% (Popper) 50 ML IV ×2 (06:01→12:14)
[2025-06-20 06:32] LABS: Basophils # (Auto) 0.0 Thou/mm3 (0.0-0.2); Basophils % (Auto) 0 % (0-2.5); Eosinophils # (Auto) 0.0 Thou/mm3 (0.0-0.5); Eosinophils % (Auto) 0 % (0-10); Hematocrit 32.0 % (36.0-46.0); Hemoglobin 10.7 g/dL (12.0-16.0); Immature Granulocytes Auto 0.02 Thou/mm3 (0.00-0.00); Lymphocytes # (Auto) 1.8 Thou/mm3 (1.0-4.8); Lymphocytes % (Auto) 23 % (10-50); Mean Corpuscular HGB Conc 33.4 g/dl (31.0-37.0); Mean Corpuscular Hemoglobin 28.5 pg (25.0-35.0); Mean Corpuscular Volume 85 fL (80-100); Monocytes # (Auto) 0.3 Thou/mm3 (0.0-0.8); Monocytes % (Auto) 4 % (0-12); Neutrophils # (Auto) 5.5 Thou/mm3 (1.8-7.7); Neutrophils % (Auto) 72 % (37-80); Nucleated Red Blood Cell # 0.00 Thou/mm3 (0.00-0.00); Nucleated Red Blood Cell % 0 /100 WBC (0); Platelet Count 295 Thou/mm3 (140-440); RDW Standard Deviation 40.9 fL (36.4-46.3); Red Blood Count 3.76 Miln/mm3 (4.00-5.20); White Blood Count 7.6 Thou/mm3 (3.6-11.0)
[2025-06-20 07:03] LABS: Alanine Aminotransferase 181 U/L (10-49); Albumin, Serum 4.0 gm/dL (3.5-5.0); Albumin/Globulin Ratio 1.4 (1.2-2.2); Alkaline Phosphatase 134 U/L (46-116); Anion Gap 12 (7-16); Aspartate Amino Transferase 110 U/L (0-34); BUN/Creatinine Ratio 11 Ratio (12-20); Bilirubin,Total 0.6 mg/dL (0.3-1.2); Blood Urea Nitrogen 8 mg/dL (9-23); Calcium 9.1 mg/dL (8.3-10.6); Calcium (Corrected) 9.1 mg/dL (8.5-10.1); Carbon Dioxide 25.4 mMol/L (20.0-31.0); Chloride 107 mMol/L (98-107); Creatinine (Component) 0.7 mg/dL (0.6-1.3); Estimated Creatinine Clearance 74.7 mL/min (>60); Globulin 2.8 gm/dL (2.3-3.5); Glucose 132 mg/dL (74-106); Osmolality,Calculated 287 (275-295); Potassium 4.1 mMol/L (3.4-5.1); Sodium 144 mMol/L (136-145); Total Protein 6.8 gm/dL (5.7-8.2); eGFR > 60 See Note
[2025-06-20 08:00] VITALS: BP 148/70; PULSE 75; RESP 18; TEMP 36.2; O2SAT 95
[2025-06-20] MEDS: HEPARIN SOD INJ 5000 UNIT/ML VIAL SC (08:29)
[2025-06-20] MEDS: DOCUSATE SOD 100 MG CAPSULE PO (08:29)
[2025-06-20] MEDS: MORPHINE SULF INJ 4 MG/ML VIAL 1 MG IVP (08:35)
--- NOTE | 2025-06-20 10:24 | PD.RESPRO ---
Documentation for date of: 06/20/25 Exam Vital Signs Temp Pulse Resp BP Pulse Ox O2 Del Method O2 Flow Rate 97.1 F 75 18 148/70 H 95 Room Air 5 06/20/25 08:00 06/20/25 08:00 06/20/25 08:00 06/20/25 08:00 06/20/25 08:00 06/20/25 04:00 06/19/25 16:30 Objective Labs 06/20/25 05:32 06/20/25 05:32 Labs: Laboratory Results - last 24 hr 06/19/25 06/20/25 05:35 05:32 WBC 7.6 RBC 3.76 L Hgb 10.7 L Hct 32.0 L MCV 85 MCH 28.5 MCHC 33.4 RDW Std Deviation 40.9 Plt Count 295 Neut % (Auto) 72 Lymph % (Auto) 23 Davidson % (Auto) 4 Eos % (Auto) 0 Baso % (Auto) 0 Neut # (Auto) 5.5 Lymph # (Auto) 1.8 Davidson # (Auto) 0.3 Eos # (Auto) 0.0 Baso # (Auto) 0.0 Immature Gran # (Auto) 0.02 H Absolute Nucleated RBC 0.00 Immature Gran % 0 Nucleated RBC % 0 Sodium 144 Potassium 4.1 Chloride 107 Carbon Dioxide 25.4 Anion Gap 12 BUN 8 L Creatinine 0.7 Estim Creat Clear Calc 74.7 eGFR > 60 BUN/Creatinine Ratio 11 L Glucose 132 H Calculated Osmolality 287 Calcium 9.1 Corrected Calcium 9.1 Total Bilirubin 0.6 AST 110 H ALT 181 H Alkaline Phosphatase 134 H Total Protein 7.0 6.8 Albumin 4.0 Globulin 3.0 2.8 Albumin/Globulin Ratio 1.3 1.4 Quality Measures Quality Measures VTE prophylaxis and none Assessment & Plan Assessment Current Active Medications: Generic Name Dose Route Start Last Admin Trade Name Freq PRN Reason Stop Dose Admin Acetaminophen 650 mg 06/18/25 09:35 Acetaminophen 325 Mg Tablet PO 07/18/25 09:34 Q6H PRN PAIN (1-3) OR FEVER > 100.4 Hydrocodone Bitart/Acetaminophen 1 tab 06/18/25 09:35 06/20/25 03:18 Hydrocodone/Apap 5/325 Tablet PO 06/23/25 09:34 1 tab Q6HR PRN Administration PAIN SCALE 4-6 (Moderate Docusate Sodium 100 mg 06/19/25 21:00 06/20/25 08:29 Docusate Sod 100 Mg Capsule PO 07/19/25 20:59 100 mg BID BILLY Administration Protocol Heparin Sodium (Porcine) 5,000 unit 06/18/25 21:00 12 08:29 Heparin Sod Inj 5000 Unit/Ml Vial SC 07/02/25 20:59 5,000 unit BID BILLY Administration Cefoxitin Sodium 2 gm/ Sodium 50 mls @ 100 mls/hr 06/19/25 18:00 06/20/25 06:01 Chloride IV 06/26/25 17:59 100 mls/hr Q6HR BILLY Administration Morphine Sulfate 1 mg 06/18/25 09:35 06/20/25 08:35 Morphine Sulf Inj 4 Mg/Ml Vial IVP 06/23/25 09:34 1 mg Q4H PRN Administration PAIN SCALE 7-10 (Severe Ondansetron HCl 4 mg 06/18/25 09:35 Ondansetron Inj 2 Mg/Ml Inj 2 Ml IVP 07/18/25 09:34 Q6H PRN NAUSEA OR VOMITING Protocol Pantoprazole Sodium 40 mg 06/18/25 21:00 06/20/25 08:29 Pantoprazole Inj 40 Mg Vial IVP 07/18/25 20:59 40 mg BID BILLY Administration
--- NOTE | 2025-06-20 11:28 | PD.SURPROG ---
Documentation for date of: 06/20/25 Subjective Subjective Narrative: Patient is seen and examined. She has epigastric incisional pain. She is tolerating liquid diet Exam Vital Signs Temp Pulse Resp BP Pulse Ox O2 Del Method O2 Flow Rate 97.1 F 75 18 148/70 H 95 Room Air 5 06/20/25 08:00 06/20/25 08:00 06/20/25 08:00 06/20/25 08:00 06/20/25 08:00 06/20/25 04:00 06/19/25 16:30 Constitutional Constitutional: no acute distress Routine HEENT Exam Eye: Present PERRL (Anicteric sclera) Routine Abdominal Exam Comments: Abdomen is soft and nondistended. Incisions are clean, dry and intact Assessment & Plan Assessment Additional comments: Postop day #1 status post laparoscopic cholecystectomy with cholangiogram. Liver enzymes remain stable, she likely passed the stone or had air bubble in the cholangiogram Plan May discharge home. Follow-up with Dr Vaughn in 2 weeks PROCEDURES: Procedures Laparoscopic cholecystectomy with intraoperative cholangiogram
--- NOTE | 2025-06-20 11:42 | ESDS_ITS ---
<Statement entered by Zuly Olivo DO - 06/21/25 07:48> I, Zuly Olivo DO, attest that I was physically present for the gilbert portions of the service and evaluated the patient with the resident and I reviewed and discussed the case with the resident and agree with the resident's findings and plans of care as documented above <Statement entered by Kostas Ashby MD - 06/20/25 14:01> Note reviewed and agree with care plan as documented. Please refer to the note below for further details. Plan discussed with attending physician Dr. Geovani Ashby MD PGY-2 Internal Medicine Planned Discharge Date 06/20/25 DS: Providers Provider Date of admission: 06/18/25 09:41 Primary care physician: Lisandra Forte MD Admitting Provider: Clint Blount MD Attending Provider on Admission: Zuly Olivo DO Consults: 06/18/25 09:23 Consult to General Surgery Stat Comment: Consulting Provider: Mario Vaughn Attending Provider on DC: Zuly Olivo DO Discharging Provider: Zuly Olivo DO Anticipated date of discharge: 06/20/25 DS: Diagnosis Problem List Completed Was Problem List Reviewed/Reconciled?: Yes Hospital Course Hospital Course Hospital course: Summary Patient is a 60-year-old female with no significant past medical history that presented to the ED on 06/18/2025 with chief complaint of worsening epigastric abdominal pain associated with constipatio. Gallbladder ultrasound found to have multiple gallstones, abdominal CT pelvis shows cholelithiasis. LFT was significant for AST 392, ALT 174, alkaline phos 133 and lipase 630. Patient admitted for acute gallstonespancreatitis evaluation and management. Laparoscopic cholecystectomy was done on 06/19/25 with cholangiogram that revealed dilated CBD with questionable small distal CBD down. Per surgery patient will likely pass the stone or had air bubble in the cholangiogram. Postop liver enzymes and lipase showed improvement. Pain is well-controlled. Patient is able to pass gas and she reported mild abdominal discomfort around the incision area. Patient is able to tolerate p.o. Patient is stable and is able to send home patient with pain medication and counter laxative if no bowel movement in the next few days.Throughout the hospital course patient other problems were managed and her condition improved remarkably.Further plan to discharge the patient home since she is hemodynamically stable to be discharged home to self care with the following instructions. Discharge recommendation: - CONTINUE HOME MEDS OMEPRAZOLE 20 MG DAILY - WILL START NORCO FOR PAIN MANAGEMENT - F/U PCP IN 1 WEEK AND REPEAT LIVER FUNCTION TEST AND CONSIDER STARTING STATIN - RETURN TO THE ED IN CASE OF YELLOWISH DISCOLORATION OF YOUR EYES AND/OR SEVERE ABDOMINAL PAIN - F/U GENERAL SURGERY WITHIN 2 WEEKS. - RETURN TO ED IF SYMPTOMS WORSEN OR CALL [phone] General Surgery Instructions: May shower. Avoid lifting, straining, pulling or pushing for 4 weeks. May take over the counter laxatives if no bowel movement in 2 days. Follow up with Dr. Vaughn in 2 weeks, call [phone] for an appointment. Continue low-fat diet for 1 week then advance diet as tolerated. Hospital Diagnoses: #Intractable epigastric pain #Acute gallstones pancreatitis #Symptomatic Cholelithiasis #Transaminitis #Hyperlipidemia Patient seen and assessed under supervision of attending physician Dr. Adrian Olivo and discuss with senior resident Dr. Ryan Ashby PGY-2 Kristal Rincon MD PGY-1, Internal Medicine Please note: this document was transcribed using voice recognition technology; minor inaccuracies may be present. Time Spent with Patient Time attestation: Total time spent providing and/or coordinating discharge services: Time spent: Greater than 30 minutes Exam Vital Signs Temp Pulse Resp BP Pulse Ox O2 Del Method O2 Flow Rate 97.1 F 75 18 148/70 H 95 Room Air 5 06/20/25 08:00 06/20/25 08:00 06/20/25 08:00 06/20/25 08:00 06/20/25 08:00 06/20/25 04:00 06/19/25 16:30 Narrative Exam General: Alert, no acute distress.Conversational and non-toxic appearing. Skin: Warm, dry, intact. No rash or ecchymoses. Head: Normocephalic, atraumatic. Eye: Normal conjunctiva, PERRL. Throat: Oral mucosa moist. No obvious lesions in oropharynx. Cardiovascular: Regular rate and rhythm, no murmur, +S1/S2. Respiratory: Lungs are clear to auscultation, respirations unlabored, no crackles, no wheezing. Gastrointestinal: Soft, nontender, non-distended. No guarding or rebound tenderness. Extremities: No edema, no cyanosis, no clubbing. Neuro: Alert and oriented x3.No focal deficits observed. Conversant, moving all extremities. No overt cerebellar signs/incoordination. Psychiatric: Cooperative, appropriate affect Discharge Plan Plan Patient Disposition: HOME (Self Care) Patient condition on transfer: Stable Care Plan Goals: - CONTINUE HOME MEDS OMEPRAZOLE 20 MG DAILY - WILL START NORCO FOR PAIN MANAGEMENT - F/U PCP IN 1 WEEK AND REPEAT LIVER FUNCTION TEST AND CONSIDER STARTING STATIN - RETURN TO THE ED IN CASE OF YELLOWISH DISCOLORATION OF YOUR EYES AND/OR SEVERE ABDOMINAL PAIN - F/U GENERAL SURGERY WITHIN 2 WEEKS. - RETURN TO ED IF SYMPTOMS WORSEN OR CALL 911 General Surgery Instructions: May shower. Avoid lifting, straining, pulling or pushing for 4 weeks. May take over the counter laxatives if no bowel movement in 2 days. Follow up with Dr. Vaughn in 2 weeks, call [phone] for an appointment. Continue low-fat diet for 1 week then advance diet as tolerated. Prescriptions/Referrals Prescriptions/Med Rec: New hydrocodone-acetaminophen 5-325 mg tablet 1 tab PO Q6H MDD 4 PRN (Reason: pain) Qty: 10 0RF docusate sodium 100 mg Capsule 100 mg PO BID PRN (Reason: constipation) 5 Days Qty: 10 0RF Continued omeprazole 20 mg capsule,delayed release(DR/EC) 20 mg PO DAILY Patient Comments: TAKE 1 CAPSULE BY MOUTH DAILY 0.5 TO 1 HOUR BEFORE BREAKFAST Referrals: Lisandra Forte MD [Primary Care Provider, Family Practice] Patient/Caregiver Discharge Instructions Discharge Activity: activity as tolerated Other Discharge Diet Instructions: May shower. Avoid lifting, straining, pulling or pushing for 4 weeks. May take over the counter laxatives if no bowel movement in 2 days. Follow up with Dr. Vaughn in 2 weeks, call [phone] for an appointment. Continue low-fat diet for 1 week then advance diet as tolerated. Education Materials: Understanding Pancreatitis, Pancreatitis Acute Dc, Preventing Surgical Site Infections Print Language: Belgian Stand Alone Forms: Traci Award Info., Patient Portal Info Letter Discharge Order Discharge Orders: Discharge (Routine); Ordered 06/20/25 Ordered By: Kristal Rincon Quality Discharge Quality Measures VTE prophylaxis
[2025-06-20 12:00] VITALS: BP 148/79; PULSE 74; RESP 18; TEMP 36.8; O2SAT 95
== END 2025-06-20 13:44 | disposition home or self-care (01) | DRG 418 ==
LOC: SERX 08:56 → SERHOLD 09:57 → S3SX 06-19 06:13
PROVIDERS: Emergency Medicine; Nurse Practitioner Family; Surgery; Admitting Provider Student in an Organized Health Care Education/Training Program; Emergency Provider Emergency Medicine; PCP Family Medicine; Visit Provider Internal Medicine
PROC: 0FT44ZZ Resection of Gallbladder, Percutaneous Endoscopic Approach (ICD-10-PCS; CPT 47562; principal; 2025-06-19 16:00)
DX: K85.10 Biliary acute pancreatitis without necrosis or infection (principal); K80.10 Calculus of gallbladder with chronic cholecystitis without obstruction; E78.5 Hyperlipidemia, unspecified; R74.01 Elevation of levels of liver transaminase levels; K59.00 Constipation, unspecified; K82.8 Other specified diseases of gallbladder
CPT/HCPCS: 36415; 74176; 74300; 76705; 80053; 80061; 81001; 83690; 83735; 84100; 84443; 84484; 85025; 85610; 85730; 93005; 96374; 96375; 99284; A4217; A4649; J0131; J0694; J1100; J1171; J1644; J1885; J2250; J2270; J2405; J2470; J2704; J3010; J3490; J7050; J7120; Q0162; A9270

== ENCOUNTER → 2025-07-02 | Outpatient (CLI) | payer OTHER, MEDICAID, SELFPAY ==
[2025-07-02 17:07] LABS: Alanine Aminotransferase 26 U/L (10-49); Albumin, Serum 4.9 gm/dL (3.5-5.0); Albumin/Globulin Ratio 1.5 (1.2-2.2); Alkaline Phosphatase 95 U/L (46-116); Anion Gap 10 (7-16); Aspartate Amino Transferase 18 U/L (0-34); BUN/Creatinine Ratio 20 Ratio (12-20); Bilirubin,Total 0.4 mg/dL (0.3-1.2); Blood Urea Nitrogen 16 mg/dL (9-23); Calcium 9.8 mg/dL (8.3-10.6); Calcium (Corrected) 9.8 mg/dL (8.5-10.1); Carbon Dioxide 25.7 mMol/L (20.0-31.0); Chloride 105 mMol/L (98-107); Creatinine (Component) 0.8 mg/dL (0.6-1.3); Globulin 3.2 gm/dL (2.3-3.5); Glucose 106 mg/dL (74-106); Lipase 76 U/L (12-53); Osmolality,Calculated 282 (275-295); Potassium 4.4 mMol/L (3.4-5.1); Sodium 141 mMol/L (136-145); Total Protein 8.1 gm/dL (5.7-8.2); eGFR > 60 See Note
== END | disposition home or self-care (01) ==
LOC: COPL 14:08
PROVIDERS: PCP Family Medicine; Referring Provider Physician Assistant; Visit Provider Physician Assistant
DX: R94.5 Abnormal results of liver function studies (principal); K85.90 Acute pancreatitis without necrosis or infection, unspecified
CPT/HCPCS: 36415; 80053; 83690